=== PATIENT | male | born 1960 | race Caucasian/White ===

== ENCOUNTER 2019-02-12 08:13 | Day surgery (SDC) | payer BC ==
[~2019-02-12 08:13] MED LIST: Lactated Ringers 1,000 ML IV SCH; Midazolam 1 MG/ML 2 ML SDV ONE; Ondansetron 4 MG/2 ML SDV ONE; Propofol 200 MG/20 ML SDV ONE; Sugammadex Sodium 200 MG/2 ML VIAL ONE; ceFAZolin 2 GM in Premix Bag 1 BAG IV ONE; fentaNYL 100 MCG/2 ML SDV ONE
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
[2019-02-12] MEDS ORDERED: ceFAZolin 1 GM Vial ONE (09:13)
[2019-02-12] MEDS ORDERED: Bupivacaine 0.5% 10 ML SDV ONE (09:13)
[2019-02-12] MEDS ORDERED: fentaNYL 100 MCG/2 ML SDV IVPUSH ONE (10:07)
[2019-02-12] MEDS ORDERED: Acetaminophen 1,000 MG in Premix Bag 1 BAG IV PRN (10:08)
[2019-02-12] MEDS ORDERED: Morphine 4 MG/ML Syringe IVPUSH ONE (10:09)
[2019-02-12] MEDS ORDERED: Morphine 10 MG/ML Syringe ONE (10:46)
[2019-02-12] MEDS ORDERED: Ondansetron 4 MG/2 ML SDV IVPUSH PRN (10:58)
[2019-02-12] MEDS ORDERED: Ketorolac 10 MG Tab PO PRN (11:00)
[2019-02-12] MEDS ORDERED: Lactated Ringers 1,000 ML IV SCH (11:00)
--- NOTE | 2019-02-12 11:02 | PCM.OPNOTE ---
- General Post-Op/Procedure Note Date of Surgery/Procedure: 02/12/19 Operative Procedure(s): Repair left inguinal hernia with large Bard PerFix plug and patch Pre Op Diagnosis: Reducible left inguinal hernia Post-Op Diagnosis: Same Anesthesia Technique: Spinal (ASA II) Primary Surgeon: Shaun Hernandez Fluid Replacement, Intraop: 800 EBL in mLs: 10 Condition: Good Free Text/Narrative:: DICTATION 456803 CPT CODE 88164
--- NOTE | 2019-02-12 11:23 | PCM.POSTAN ---
POST ANESTHESIA ASSESSMENT - MENTAL STATUS Mental Status: Alert - VITAL SIGNS Vital Signs: Last Vital Signs Temp 36.2 C 02/12/19 10:51 Pulse 63 02/12/19 11:21 Resp 14 02/12/19 11:21 BP 120/69 02/12/19 11:21 Pulse Ox 98 02/12/19 11:21 - RESPIRATORY Respiratory Status: Respiratory Rate WNL - CARDIOVASCULAR CV Status: Pulse Rate WNL - GASTROINTESTINAL GI Status: No Symptoms - POST OP HYDRATION Hydration Status: Adequate & Stable
--- NOTE | 2019-02-12 13:09 | OR ---
SURGEON: Shaun Hernandez M.D. DATE OF PROCEDURE: 02/12/2019 OPERATION PERFORMED: Repair of left inguinal hernia with large Bard PerFix plug and patch. PRIMARY SURGEON: Shaun Hernandez M.D. ANALYTICS SPECIALIST: clinical laboratory assistant: Maame Burnett, OR tech student. ANESTHESIA: Spinal. ASA CLASSIFICATION: II. PREOPERATIVE DIAGNOSIS: Reducible left inguinal hernia. POSTOPERATIVE DIAGNOSIS: Reducible left inguinal hernia. ESTIMATED BLOOD LOSS: 10 mL. INTRAOPERATIVE FLUID REPLACEMENT: 800 mL of crystalloid. DESCRIPTION OF PROCEDURE: The patient was taken to the operating room and placed on the operating table in the supine position. Time-out was called for appropriate identification of the patient and procedure. Thigh-high TEDs and sequential compression boots were placed. Following satisfactory attainment of spinal anesthesia, the patient was returned to the supine position. The surgical site was prepped with ChloraPrep solution. Sterile drapes were applied. The patient was tested for sensation and had no discomfort. The skin incision was made in the left inguinal crease and deepened through the subcutaneous tissue obtaining hemostasis with the use of electrocautery. Dissection was carried down to the external oblique fascia which was opened in the direction of its fibers. Hernia sac was easily visible. The spermatic cord was mobilized and encircled with a Hundred drain. The hernia sac was dissected away from the cord and reduced. The hernia sac was not entered. Once the hernia sac was reduced, a large Bard PerFix plug and patch was brought to the operating table. This was soaked in 1% Ancef solution. The plug was placed into the internal ring and secured with 0 Ethibond sutures. The patch was then placed over this and repair carried out in a medial to lateral direction. Medially and inferiorly, the patch was sutured in place to Rebel ligament transitioning to the inguinal ligament and superiorly to transversalis fascia. The wings were brought around the cord laterally. Care was taken to include plug and patch with two of the stitches to avoid migration. The wings having been brought around the cord were now secured laterally with 0 Ethibond suture. All sutures except the lateral suture were secured. The patient was given a Valsalva maneuver and the repair was solid. The lateral stitch was then secured. The wound was irrigated with 1% Ancef solution. The cord was returned to its anatomic location. The external oblique fascia was closed with 3-0 Vicryl. Elena fascia was closed with 3-0 Vicryl. The skin edges were reapproximated with subcuticular 4-0 Monocryl reinforced with Steri-Strips. Sterile Tegaderm pad was placed as a dressing. Sponge, needle, and instrument counts were all correct. The patient tolerated the procedure well and was taken to recovery room in stable condition. GIBSON BECKETT /[id number]
--- NOTE | 2019-02-12 16:05 | PCM48HPAN ---
Post Anesthesia Note - EVALUATION WITHIN 48HRS OF ANESTHETIC Vital Signs in Normal Range: Yes Patient Participated in Evaluation: Yes Respiratory Function Stable: Yes Airway Patent: Yes Cardiovascular Function Stable: Yes Hydration Status Stable: Yes Pain Control Satisfactory: Yes Nausea and Vomiting Control Satisfactory: Yes Mental Status Recovered: Yes Vital Signs: Last Vital Signs Temp 97.7 F 02/12/19 11:23 Pulse 60 02/12/19 12:38 Resp 16 02/12/19 12:38 BP 102/55 L 02/12/19 12:38 Pulse Ox 99 02/12/19 12:38 - COMMENTS/OBSERVATIONS Free Text/Narrative:: spinal resolved, able to void
== END 2019-02-12 15:45 | disposition home or self-care (01) ==
LOC: MW.SDS 08:13
PROVIDERS: ATTEND Surgery
DX: K40.90 Unilateral inguinal hernia, without obstruction or gangrene, not specified as recurrent (principal); E11.9 Type 2 diabetes mellitus without complications; K21.9 Gastro-esophageal reflux disease without esophagitis; F90.9 Attention-deficit hyperactivity disorder, unspecified type; Z88.5 Allergy status to narcotic agent; Z79.4 Long term (current) use of insulin
CPT/HCPCS: 49505; 82962; J0131; J0690; J2250; J2270; J2405; J2704; J3010; J7120; C1781; J3490